=== PATIENT | male | born 1985 | race Caucasian/White ===

== ENCOUNTER 2021-07-22 02:48 | Emergency (ER) | payer BC, OTHER ==
[~2021-07-22] VITALS: Ht 167.6 cm; Wt 77.1 kg
[~2021-07-22 02:48] MED LIST: NORPTMEDS CO
[2021-07-22 07:35] VITALS: BP 123/76
[2021-07-22] MEDS ORDERED: IBUP800T27 PO (09:26)
[2021-07-22] MEDS ORDERED: METH750T22 PO (09:26)
== END 2021-07-22 09:39 | disposition home or self-care (01) ==
LOC: ER 02:48
DX: S86.912A Strain of unspecified muscle(s) and tendon(s) at lower leg level, left leg, initial encounter (principal); X58.XXXA Exposure to other specified factors, initial encounter; Y93.89 Activity, other specified; Y92.89 Other specified places as the place of occurrence of the external cause; Y99.8 Other external cause status
CPT/HCPCS: 93971